=== PATIENT | male | born 1955 | race Caucasian/White ===

== ENCOUNTER 2018-04-21 08:00 | Inpatient (IN) | payer OTHER ==
[~2018-04-21] VITALS: Ht 188 cm; Wt 63.4 kg
[~2018-04-21 08:00] MED LIST: HYDCHL12.5 PO; HYDCHL25 PO; LISI20 PO; METF500 PO; METO25ER PO; METO50 PO; METO50ER PO; PRAV10 PO; PRAV20 PO
[2018-04-21 08:47] LABS: BASOPHILS ABSOLUTE AUTO 0.02 K/mm3 (0.00-0.23); BASOPHILS PERCENT AUTO 0 % (0-2); EOSINOPHILS ABSOLUTE AUTO 0.03 K/mm3 (0.00-0.68); EOSINOPHILS PERCENT AUTO 0 % (0-6); Hematocrit 26.1 % (37.0-53.0); Hemoglobin 8.9 g/dL (13.5-17.5); IMMATURE GRAN ABSOLUTE AUTO 0.43 K/mm3 (0.00-0.10); IMMATURE GRAN PERCENT AUTO 5 % (0-1); LYMPHOCYTES ABSOLUTE AUTO 0.98 K/mm3 (0.84-5.20); LYMPHOCYTES PERCENT AUTO 10 % (21-46); MONOCYTES ABSOLUTE AUTO 0.49 K/mm3 (0.16-1.47); MONOCYTES PERCENT AUTO 5 % (4-13); Mean Corpuscular HGB Conc 34.1 g/dL (31.5-36.5); Mean Corpuscular Volume 88 fL (80-100); NEUTROPHILS ABSOLUTE AUTO 7.49 K/mm3 (1.96-9.15); NEUTROPHILS PERCENT AUTO 79 % (41-73); RDW Coefficient Variation 13.9 % (11.7-14.2); RDW Standard Deviation 44.7 fL (35.1-46.3); Red Blood Cell Count 2.97 M/mm3 (4.30-5.90); White Blood Cell Count 9.44 K/mm3 (4.00-11.30)
[2018-04-21 08:48] LABS: Mean Platelet Volume 14.2 fL (9.1-12.4)
[2018-04-21 08:51] LABS: Platelet Count 20 K/mm3 (150-400)
[2018-04-21] MEDS ORDERED: Ventolin/Prove6.7 GM INH (08:57)
[2018-04-21] MEDS ORDERED: SPIRIVA RESPIMAT4 GM INH (08:57)
[2018-04-21] MEDS ORDERED: COMBIVENT RESPIM4 GM INH (08:58)
[2018-04-21 09:01] LABS: Alanine Aminotransfer (ALT/SGP 41 U/L (12-78); Albumin, Blood 2.3 g/dL (3.4-5.0); Albumin/Globulin Ratio 0.8 (0.8-1.8); Alk Phos 136 U/L (50-136); Anion Gap 17 mmol/L (6-16); Aspartate Aminotrans (AST/SGOT 72 U/L (12-37); Bilirubin, Total 1.4 mg/dL (0.1-1.0); Blood Urea Nitrogen 11 mg/dL (8-24); CO2, Blood 16 mmol/L (21-32); Calcium, Blood 7.8 mg/dL (8.5-10.1); Chloride, Blood 99 mmol/L (98-108); Creatinine, Blood 0.85 mg/dL (0.60-1.20); Globulin, Blood 2.8 g/dL (2.2-4.0); Glomerular Filtration Rate >60 (60-); Glucose, Blood 178 mg/dL (70-99); Sodium, Blood 132 mmol/L (136-145); Total Protein, Blood 5.1 g/dL (6.4-8.2)
[2018-04-21 12:32] LABS: PCO2 Arterial 21.9 mmHg (35-45); PO2 Arterial 256 mmHg (80-100); pH Blood Arterial 7.01 (7.35-7.45)
== END 2018-04-21 18:34 | DRG 871 ==
LOC: ER 08:00 → PCU 09:34
PROVIDERS: Emergency Medicine; Internal Medicine
DX: A41.9 Sepsis, unspecified organism (principal); J96.01 Acute respiratory failure with hypoxia; G93.41 Metabolic encephalopathy; J69.0 Pneumonitis due to inhalation of food and vomit; R65.21 Severe sepsis with septic shock; Z51.5 Encounter for palliative care; R64 Cachexia; Z68.1 Body mass index [BMI] 19.9 or less, adult; E44.0 Moderate protein-calorie malnutrition; E87.1 Hypo-osmolality and hyponatremia; A09 Infectious gastroenteritis and colitis, unspecified; D62 Acute posthemorrhagic anemia; C78.00 Secondary malignant neoplasm of unspecified lung; D61.818 Other pancytopenia; C79.51 Secondary malignant neoplasm of bone; E11.9 Type 2 diabetes mellitus without complications; I10 Essential (primary) hypertension; E78.5 Hyperlipidemia, unspecified; Z66 Do not resuscitate; D69.6 Thrombocytopenia, unspecified; I95.9 Hypotension, unspecified; R62.7 Adult failure to thrive; Z90.2 Acquired absence of lung [part of]; Z85.828 Personal history of other malignant neoplasm of skin; Z79.51 Long term (current) use of inhaled steroids; R57.1 Hypovolemic shock
CPT/HCPCS: 36600; 71045; 80053; 82803; 85025; 93005; 93010; 94660; 96361; 96374; 99285-25; J2405; J2930; J3010; J7030